=== PATIENT | female | born 1995 | race Two or more races ===

== ENCOUNTER 2022-05-31 13:01 | Emergency (ER) | payer SELFPAY ==
[~2022-05-31] VITALS: Ht 175.3 cm; Wt 122.5 kg
--- NOTE | 2022-05-31 13:18 | NUR ---
TO ER BED 10. BIBS C/O DIFFUSE ABDOMINAL PAIN X 5 DAYS. PT STATED THAT THE PAIN IS LOCATED MID ABDOMINAL REGION AND LLQ 7/10 PAIN ON PAIN SCALE. ATTACHED TO MONITOR, VITALS ARE WITHIN NORMAL LIMITS. WARM BLNAKET PROVIDED FOR COMFORT. AWAITING MD ORDERS.
[2022-05-31] MEDS ORDERED: ONDANSETRON HCL/PF 4 MG/2 ML VIAL ONE (13:26)
--- NOTE | 2022-05-31 13:26 | NUR ---
IV ESTABLIHSED R AC 20G. LABS DRAWNA ND COLLECTED AT BEDSIDE
[2022-05-31] MEDS ORDERED: ONDANSETRON HCL/PF 4 MG/2 ML VIAL IVP ONE (13:30)
[2022-05-31] MEDS ORDERED: IV NS 0.9% 1,000 ML BAG IV ONE (13:30)
[2022-05-31 14:00] LABS: BASOPHILS # (AUTO) 0.1 K/uL (0.0-0.2); BASOPHILS % (AUTO) 0.8 % (0.0-2.0); EOSINOPHILS % (AUTO) 1.8 % (0.0-6.0); HEMATOCRIT 38 % (33-45); HEMOGLOBIN 12.6 g/dL (11.5-14.8); LYMPHOCYTES # (AUTO) 2.7 K/uL (0.8-4.8); LYMPHOCYTES % (AUTO) 33.2 % (20.0-44.0); MEAN CORPUSCULAR HGB CONC 33 g/dl (31.0-36.0); MEAN CORPUSCULAR VOLUME 88 fL (82-100); MONOCYTES # (AUTO) 0.6 K/uL (0.1-1.30); MONOCYTES % (AUTO) 7.2 % (2.0-12.0); NEUTROPHILS # (AUTO) 4.7 K/uL (1.8-8.9); PLATELET COUNT (AUTO) 227 K/uL (150-450); RED BLOOD CELL COUNT(AUTO) 4.35 MIL/uL (4.0-5.2); WHITE BLOOD COUNT (AUTO) 8.3 K/uL (4.3-11.0)
[2022-05-31 14:08] LABS: CALCIUM, SERUM 8.6 mg/dL (8.5-10.1); CREATININE 0.9 mg/dL (0.6-1.3); POTASSIUM 4.2 mmol/L (3.5-5.1)
[2022-05-31 14:13] LABS: ALBUMIN 3.6 g/dL (3.4-5.0); BILIRUBIN,DIRECT 0.1 mg/dL (0.0-0.2); BILIRUBIN,TOTAL 0.3 mg/dL (0.2-1.0); TOTAL PROTEIN, SERUM 7.3 g/dL (6.4-8.2)
--- NOTE | 2022-05-31 14:20 | NUR ---
URINE COLLECTED AND SENT
[2022-05-31] MEDS ORDERED: FAMOTIDINE/PF INJ 20 MG/2 ML VIAL IV ONE ×2 (14:30→14:32)
[2022-05-31] MEDS ORDERED: LIDOCAINE VISCOUS 2% UD 15 ML UDC MM ONE (14:30)
[2022-05-31] MEDS ORDERED: MAG HYDROX/AL HYDROX/SIMETH 30 ML UDC PO ONE (14:30)
[2022-05-31] MEDS ORDERED: LIDOCAINE VISCOUS 2% UD 15 ML UDC ONE (14:32)
[2022-05-31] MEDS ORDERED: MAG HYDROX/AL HYDROX/SIMETH 30 ML UDC ONE (14:32)
[2022-05-31] MEDS ORDERED: OMEP40CA21 PO (14:59)
[2022-05-31] MEDS ORDERED: ONDA4TAB11 PO (14:59)
[2022-05-31 15:19] VITALS: BP 133/71
[2022-05-31 15:42] LABS: BILIRUBIN,URINE NEGATIVE (NEGATIVE); COLOR,URINE YELLOW (YELLOW); LEUKOCYTE ESTERASE ,URINE NEGATIVE (NEGATIVE); NITRITE, URINE NEGATIVE (NEGATIVE); PROTEIN,URINE NEGATIVE (NEGATIVE); UGLUCOSE NEGATIVE (NEGATIVE); UROBILINOGEN,URINE 0.2 EU/dL (0.2)
== END 2022-05-31 15:20 | disposition home or self-care (01) ==
LOC: ER 13:22
DX: K25.9 Gastric ulcer, unspecified as acute or chronic, without hemorrhage or perforation (principal); R10.13 Epigastric pain; Z88.8 Allergy status to other drugs, medicaments and biological substances; Z79.899 Other long term (current) drug therapy
CPT/HCPCS: 99284; 96374; 96361; 96375; 85025; 80048; 83690; 80076; 84703; 81003; 36415; J3490; J2405; J7030